=== PATIENT | male | born 2000 | race Caucasian/White ===

== ENCOUNTER 2019-06-05 09:52 | Emergency (ER) | payer MEDICAID, SELFPAY ==
[2019-06-05 09:58] VITALS: BP 142/78; PULSE 89; RESP 20; TEMP 37.3; O2SAT 96; BMI 33.7
--- NOTE | 2019-06-05 10:02 | ED_ITS ---
Entered by Tesfaye Thompsno, acting as scribe for Jens Guerra DO HPI - URI/Sore Throat General: Chief Complaint: Upper Respiratory Infection Stated Complaint: cough/sob Time Seen by Provider: 06/05/19 09:54 History of Present Illness: HPI Narrative: 18 yo male presents with cough, runny nose, shortness of breath and headache. Pt states that he has had this for a few days. Pt states that he has asthma. Nonproductive cough low-grade fever no dysuria urgency or frequency no nausea vomiting or diarrhea. MD elicited complaint: cough and rhinorrhea Pertinent past history: asthma Onset (ago): day(s) Consistency: constant Exacerbating factors: nothing Relieving factors: nothing Associated symptoms: Reports cough, headache(s) and short of breath; Deny abdominal pain, chills, chest pain, diarrhea, fever(s), nasal congestion, nausea or vomiting Review of Systems Const: Denies: fever, chills, body aches, fatigue, malaise or night sweats Eyes: Denies: change in vision or blurry vision ENMT: Denies: throat pain, oral sores/lesions, dental pain, nasal discharge or nasal congestion Card: Denies: chest pain, palpitations, irregular heart rhythm, edema, syncope, shortness of breath on exertion, shortness of breath when lying down or leg pain with exertion Resp: Reports: shortness of breath and non-productive cough; Denies: productive cough or wheezing GI: Denies: abdominal pain, nausea, vomiting, vomiting blood, coffee grounds in vomit, difficulty swallowing, heartburn/indigestion, diarrhea, constipation, cramping, blood in stool or black tarry stool : Denies: flank pain, difficulty urinating, painful urination, urinary frequency, urinary urgency, urinary incontinence or blood in urine Musc: Reports: back pain; Denies: neck pain, extremity pain, extremity swelling, joint pain or joint swelling Skin/Breast: Denies: rash, itching or redness Neuro: Reports: headache Psych: Denies: anxiety, depression, loss of interest, visual hallucinations, auditory hallucinations, suicidal ideation or homicidal ideation Endo: Denies: excessive urination, excessive thirst, tired all the time or cold intolerance Corey/Lymph: Denies: easy bruising, easy bleeding, petechiae, enlarged lymph nodes or tender lymph nodes PFSH ED PFSH: Medical History (Updated 06/05/19 @ 12:08 by Jens Guerra DO) Asthma Social History Smoking and tobacco status: current every day smoker Physical Exam Const: COMMON NORMALS: average body habitus, oriented x3 and alert GENERAL APPEARANCE: cooperative, comfortable, well kempt and well developed NUTRITIONAL APPEARANCE: obese ORIENTATION/CONSCIOUSNESS: Yes awake, Yes oriented to person and Yes oriented to place HENMT: COMMON NORMALS: normocephalic, head/scalp atraumatic, EAC's normal, TM's normal bilaterally, external nose normal, moist oral mucous membranes and oropharynx normal HEAD & SCALP: normocephalic and atraumatic NOSE: external nose normal EXTERNAL AUDITORY CANAL: EAC's normal TYMPANIC MEMBRANE: TM's normal bilaterally MOUTH: oral and palatal mucosa normal, lip normal and tongue normal THROAT: posterior oropharynx normal and tonsils normal Eye: COMMON NORMALS: PERRL, EOMs intact bilaterally, conjunctivae normal and no scleral icterus CONJUNCTIVA: Yes conjunctivae normal PUPIL: Yes PERRL Neck/C-Spine: COMMON NORMALS: full ROM, no lymphadenopathy, supple, no meningeal signs and thyroid normal THYROID: thyroid normal and asymmetrical Lymph: LYMPHATIC: no lymphadenopathy noted Resp: COMMON NORMALS: normal respiratory effort, no retractions, no use of accessory muscles and clear to auscultation bilaterally AUSCULTATION: clear to auscultation bilaterally Cardio: COMMON NORMALS: regular rate and regular rhythm RATE: regular rate RHYTHM: regular rhythm HEART SOUNDS: no murmurs GI: COMMON NORMALS: normal to inspection, nondistended, normoactive bowel sounds, soft to palpation and no hepatosplenomegaly PALPATION: Yes soft and Yes no hepatosplenomegaly : COMMON NORMALS: Yes no CVA tenderness BLADDER/KIDNEY EXAM: Yes no CVA tenderness Back/Pelvis: COMMON NORMALS: no CVA tenderness LUMBAR SPINE/LOWER BACK: Yes normal to inspection Extremity: COMMON NORMALS: no clubbing, cyanosis or edema, no calf tenderness and no pedal edema Neuro: COMMON NORMALS: oriented x3 SENSORIUM/ORIENTATION: Yes alert, Yes oriented to person and Yes oriented to place MENINGEAL SIGNS: Yes no meningeal signs Psych: APPEARANCE: Yes well kempt Skin: COMMON NORMALS: no rashes or lesions noted and skin turgor normal GENERAL SKIN EXAM: no rashes or lesions noted and turgor normal Course Vital Signs: Vital signs: Vital Signs Temperature 99.2 F 06/05/19 09:58 Pulse Rate 65 06/05/19 12:36 Respiratory Rate 16 06/05/19 12:36 Blood Pressure 102/47 06/05/19 12:36 Pulse Oximetry 97 06/05/19 12:36 MDM - URI/Sore Throat MDM Narrative: Medical decision making narrative: Patient swab for Covid 19. He is asked to remain in quarantine at home until we get the results. Return if patient has further problems Lab Data: Labs: Lab Results 06/05/19 Range/Units 10:15 Influenza Type A A g Negative (Negative) POC Influenza B Ag Negative (Negative) Discharge Plan Discharge Patient Disposition: Home, Self-Care Clinical Impression: Upper respiratory infection Condition: Stable Prescriptions: No Action No Known Home Medications RF: 0 Discharge Orders: Discharge Order (Routine); Ordered 06/05/19 Ordered By: Jens Guerra Referrals: Aydin Chase DO [Family Provider] - Discharge Diet: Usual diet Discharge Activity: Increase activity as tolerated Activity Restrictions/Additional Instructions: Recommend that you self quarantine for the next 14 days or until your test results for COVID 19 become available. You should remain in home quarantine until we contact you with the results. These results should be available in 3 to 4 days. Discharge Date/Time: 06/05/19 12:26 Coding Level of Care Code ED [employer] Operator for Chg Fwd Exam Comprehensive The documentation recorded by the Jay escobar Kialy, accurately reflects the service I personally performed and the decisions made by Charlie starr Curtis L, DO Jun 05, 2019 09:52
[2019-06-05 11:09] LABS: Influenza A by IFA Negative (Negative); Influenza B by IFA Negative (Negative)
[2019-06-05 11:46] VITALS: BP 108/62; PULSE 62; RESP 16; O2SAT 98
[2019-06-05 12:36] VITALS: BP 102/47; PULSE 65; RESP 16; O2SAT 97
[2019-06-15 08:29] LABS: Coronavirus Overall Results NOT DETECTED
== END 2019-06-05 12:26 | disposition home or self-care (01) ==
PROVIDERS: Emergency Provider Family Medicine; Family Provider Internal Medicine
DX: J06.9 Acute upper respiratory infection, unspecified (principal); J45.909 Unspecified asthma, uncomplicated; E66.9 Obesity, unspecified; F17.200 Nicotine dependence, unspecified, uncomplicated
CPT/HCPCS: 12345; 87635; 87804; 99282

== ENCOUNTER 2019-07-16 09:38 | Emergency (ER) | payer MEDICAID, SELFPAY ==
[2019-07-16 09:46] VITALS: BP 124/78; PULSE 114; RESP 18; TEMP 37.5; O2SAT 96; BMI 33.0
--- NOTE | 2019-07-16 09:59 | XR_ITS ---
WS: [id number] XR chest 1V portable [id number] REASON FOR EXAM: cough/congestion FINDINGS: The heart and mediastinal interfaces were normal. The lung gamble are well aerated. No pneumonia, pleural effusion, pulmonary edema, or mass effect. The hilum and apices are normal. No osseous abnormalities. XR/XR chest 1V portable [id number] IMPRESSION: Negative chest for acute findings.
--- NOTE | 2019-07-16 09:59 | W.ED.URI ---
HPI - URI/Sore Throat General: Chief Complaint: General Medical Stated Complaint: FEVER, DRY COUGH, CHEST PAINS Time Seen by Provider: 07/16/19 09:51 Source: patient Mode of arrival: ambulatory Limitations: no limitations History of Present Illness: HPI Narrative: Patient is a 18-year-old male who presents to ED today with complaints of a bad cough over the past few days. He is also having some nasal congestion. He reports subjective fevers. Patient does not have chest pains or difficulty breathing. He does complain of some pain with inspiration and pain only when coughing. He has not had any hemoptysis. He has no other complaints at this time. He does report subjective fevers. Patient is a pack-a-day smoker and in addition smokes marijuana. He has not had any recent travel or sick contacts. MD elicited complaint: cough and nasal congestion Severity: moderate Description of mucous: clear Able to tolerate fluids by mouth: Yes Exacerbating factors: nothing Relieving factors: nothing Associated symptoms: Reports nasal congestion; Deny abdominal pain, chills, chest pain (only when coughing), ear or mastoid pain, fever(s) (subjective ), headache(s), nausea, sinus pain or vomiting Review of Systems Const: Denies: fever (subjective ), chills, body aches or fatigue Eyes: Denies: change in vision, blurry vision, photophobia, eye discomfort or eye discharge ENMT: Reports: nasal congestion; Denies: throat pain, enlarged tonsils, painful swallowing, swelling of lips/tongue, oral sores/lesions, ear pain, ear discharge, nasal discharge, post nasal drip or facial/sinus pain Card: Denies: chest pain (only when coughing), palpitations, irregular heart rhythm, edema, lightheadedness, syncope, pre-syncope or shortness of breath on exertion Resp: Reports: productive cough, pain on inspiration and chest congestion; Denies: shortness of breath, non-productive cough, wheezing, stridor or coughing up blood GI: Denies: abdominal pain, nausea or vomiting Musc: Denies: neck pain or back pain Skin/Breast: Denies: rash Neuro: Denies: headache All/Imm: Denies: facial swelling or seasonal allergies PFS ED PFSH: Medical History (Updated 07/16/19 @ 10:15 by SARAH Lucio) Asthma Social History Smoking and tobacco status: current every day smoker Physical Exam Const: COMMON NORMALS: no apparent distress, average body habitus, oriented x3, no limitations, healthy appearing, alert and well nourished HENMT: COMMON NORMALS: normocephalic, head/scalp atraumatic, hearing grossly normal bilaterally, external ears normal, EAC's normal, TM's normal bilaterally, external nose normal, nasal mucous membranes and turbinates normal, moist oral mucous membranes, oropharynx normal, dentition normal and gingiva normal HEAD & SCALP: normal to inspection, normocephalic and atraumatic FACE & SINUS: normal facial exam and sinuses nontender NOSE: external nose normal and nasal mucous membranes and turbinates normal EXTERNAL EAR: Yes external ears normal EXTERNAL AUDITORY CANAL: EAC's normal TYMPANIC MEMBRANE: TM's normal bilaterally MOUTH: oral and palatal mucosa normal, lip normal and tongue normal THROAT: posterior oropharynx normal, tonsils normal and uvula midline Eye: COMMON NORMALS: PERRL, EOMs intact bilaterally and conjunctivae normal CONJUNCTIVA: Yes conjunctivae normal PUPIL: Yes PERRL Neck/C-Spine: COMMON NORMALS: full ROM, no lymphadenopathy and no meningeal signs Resp: COMMON NORMALS: normal respiratory effort and clear to auscultation bilaterally AUSCULTATION: clear to auscultation bilaterally OTHER: course sounding cough Cardio: COMMON NORMALS: regular rate and regular rhythm RATE: regular rate RHYTHM: regular rhythm Neuro: COMMON NORMALS: oriented x3 SENSORIUM/ORIENTATION: Yes alert MENINGEAL SIGNS: Yes no meningeal signs Skin: COMMON NORMALS: no rashes or lesions noted GENERAL SKIN EXAM: no rashes or lesions noted Course Vital Signs: Vital signs: Vital Signs Temperature 99.5 F 07/16/19 09:46 Pulse Rate 94 07/16/19 10:24 Respiratory Rate 17 07/16/19 10:24 Blood Pressure 142/87 07/16/19 10:24 Pulse Oximetry 95 07/16/19 10:24 MDM - URI/Sore Throat Imaging Data^: CXR: My impression: NAD Radiologist's impression: [address] [address] XRay Report Signed Patient: Drew Dallas Unit #: [id number] : 2000 Age/Sex: 18 / M ADM Date: 07/16/19 Loc: ER Room/Bed: Attending Dr: Ordering Provider/Ordering MD: Shanique Veliz Date of Service: 07/16/19 Procedure(s): XR chest 1V portable [id number] Accession Number(s): [id number] Report Number: [id number] WS: [id number] XR chest 1V portable [id number] REASON FOR EXAM: cough/congestion FINDINGS: The heart and mediastinal interfaces were normal. The lung gamble are well aerated. No pneumonia, pleural effusion, pulmonary edema, or mass effect. The hilum and apices are normal. No osseous abnormalities. XR/XR chest 1V portable [id number] IMPRESSION: Negative chest for acute findings. Dictated By: Zhen Hwang DO Signed By: Zhen Hwang DO Signed Date/Time: 07/16/19 1013 DD/ 1010 Discharge Plan Discharge Patient Disposition: Home, Self-Care Clinical Impression: Bronchitis Condition: Stable Prescriptions: New prednisone 10 mg tablet 60 mg PO DAILY 5 Days Qty: 30 RF: 0 promethazine-DM 6.25-15 mg/5 mL syrup 5 ml PO Q6H PRN (Reason: cough) Qty: 118 RF: 0 doxycycline monohydrate 100 mg capsule 100 mg PO Q12H 10 Days Qty: 20 RF: 0 Discharge Orders: Discharge Order (Routine); Ordered 07/16/19 Ordered By: Shanique Veliz Referrals: Aydin Chase DO [Family Provider] - Patient Instructions: Bronchitis (Acute) - Adult, Cigarette Smoking and Your Health (GEN), Acute Bronchitis (ED), Quitting Smoking Activity Restrictions/Additional Instructions: Follow up with primary care in 1 week for worsening or continued symptoms. Can return to ED for any concerns you may have. Coding Level of Care Code ED [employer] for Chg Fwd Exam Detailed
[2019-07-16 10:24] VITALS: BP 142/87; PULSE 94; RESP 17; O2SAT 95
== END 2019-07-16 10:24 | disposition home or self-care (01) ==
LOC: ER 07-17 01:06
PROVIDERS: Emergency Provider Physician Assistant; PCP Internal Medicine
DX: J45.909 Unspecified asthma, uncomplicated (principal); F17.210 Nicotine dependence, cigarettes, uncomplicated
CPT/HCPCS: 12345; 71045; 99281; 99283